=== PATIENT | male | born 1950 | race Two or more races ===

== ENCOUNTER 2021-12-14 06:07 | Day surgery (SDC) | payer OTHER ==
[~2021-12-14 06:07] MED LIST: ATACAND32 MG PO; TRICOR145 MG PO; ZETIA10 MG PO; [UNRECOGNIZED DRUG - OTHER]
[2021-12-14] MEDS ORDERED: FLUCONAZOLE100 MG PO (11:13)
[2021-12-14] MEDS ORDERED: ACETAMINOPHEN-1 EAC2 PO (11:15)
== END 2021-12-14 16:37 | disposition home or self-care (01) ==
LOC: CIR.AMB 06:07
PROVIDERS: ATTEND Surgery
DX: T83.410A Breakdown (mechanical) of implanted penile prosthesis, initial encounter (principal); I10 Essential (primary) hypertension; E78.00 Pure hypercholesterolemia, unspecified; Z85.46 Personal history of malignant neoplasm of prostate; M19.90 Unspecified osteoarthritis, unspecified site
CPT/HCPCS: 54410; C1813